=== PATIENT | female | born 1955 | race Caucasian/White ===

== ENCOUNTER 2017-12-11 16:15 | Emergency (ER) | payer MEDICARE ==
--- NOTE | 2017-12-11 19:26 | ER Document Report ---
ED Extremity Problem, Lower - General Chief Complaint: Leg Pain Stated Complaint: LEG PAIN Time Seen by Provider: 12/11/17 17:01 Mode of Arrival: Ambulatory Information source: Patient Notes: Patient presents with some left lower extremity pain. She states is mainly been behind the knee and into the left calf. It is worse with movement and better with rest. It is mild to moderate. And intermittent. She denies any known injury. She states she is worried about a DVT. No previous history of DVTs. She states she has noticed some mild swelling around her left ankle. The pain does radiate up and down the leg. TRAVEL OUTSIDE OF THE [place] IN LAST 30 DAYS: No - Related Data Allergies/Adverse Reactions: morphine Allergy (Verified 12/11/17 16:18) Past Medical History - General Information source: Patient - Social History Smoking Status: Never Smoker Frequency of alcohol use: Occasional Drug Abuse: None Family History: Reviewed & Not Pertinent Patient has suicidal ideation: No Patient has homicidal ideation: No Renal/ Medical History: Denies: Hx Peritoneal Dialysis Review of Systems - Review of Systems Constitutional: denies: Chills, Fever Cardiovascular: denies: Chest pain, Palpitations Respiratory: denies: Cough, Short of breath -: Yes All other systems reviewed and negative Physical Exam - Vital signs Vitals: Temp Pulse Resp BP Pulse Ox 97.8 F 78 16 127/101 H 97 12/11/17 16:20 12/11/17 16:20 12/11/17 16:20 12/11/17 16:20 12/11/17 16:20 Interpretation: Normal - General General appearance: Appears well, Alert - HEENT Head: Normocephalic, Atraumatic Eyes: Normal Pupils: PERRL - Respiratory Respiratory status: No respiratory distress Chest status: Nontender Breath sounds: Normal Chest palpation: Normal - Cardiovascular Rhythm: Regular Heart sounds: Normal auscultation Murmur: No - Abdominal Inspection: Normal Distension: No distension Bowel sounds: Normal Tenderness: Nontender Organomegaly: No organomegaly - Back Back: Normal, Nontender - Extremities General upper extremity: Normal inspection, Nontender, Normal color, Normal ROM , Normal temperature General lower extremity: Normal inspection, Nontender, Normal color, Normal ROM , Normal temperature, Normal weight bearing. No: Helen's sign - Neurological Neuro grossly intact: Yes Cognition: Normal Orientation: AAOx4 [place] Coma Scale Eye Opening: Spontaneous [place] Coma Scale Verbal: Oriented [place] Coma Scale Motor: Obeys Commands [place] Coma Scale Total: 15 Speech: Normal Motor strength normal: LUE, RUE, LLE, RLE Sensory: Normal - Psychological Associated symptoms: Normal affect, Normal mood - Skin Skin Temperature: Warm Skin Moisture: Dry Skin Color: Normal Course - Vital Signs Vital signs: Temp Pulse Resp BP Pulse Ox 97.8 F 78 16 127/101 H 97 12/11/17 16:20 12/11/17 16:20 12/11/17 16:20 12/11/17 16:20 12/11/17 16:20 - Diagnostic Test Radiology reviewed: Image reviewed, Reports reviewed - Ultrasound and reading were reviewed. No evidence of DVT. Discharge - Discharge Clinical Impression: Left leg pain Condition: Stable Disposition: HOME, SELF-CARE Additional Instructions: Please call your primary care physician in the morning to arrange follow-up.
--- NOTE | 2017-12-11 19:26 | XCELERA REPORT ---
[address] [address] Lower Extremity Venous Evaluation Name: SHI CLARK Age: 62 yrs Gender: Female : 1955 Patient Status: Emergency Patient Location: ER Study Date: 12/11/2017 06:41 PM Procedure: Color flow and duplex imaging of the veins of the left lower extremity as well as the right Common Femoral vein. Reason For Study: LLE swelling pain Ordering Physician: PERLA DELANEY Performed By: Anna Lai Right Sided Venous Evaluation The right common femoral vein is fully compressible. Spontaneous and phasic flow is present in the right common femoral vein. Left Sided Venous Evaluation Normal vessel filling wall to wall, compression and augmentation as well as Colour flow down to the infrageniculate veins. Interpretation Summary No duplex evidence of DVT or obstruction in the left lower extremity nor in the right Common Femoral vein. : PERLA DELANEY > Alessandro Umaña
[2017-12-11 19:40] VITALS: BP 125/83
== END 2017-12-11 19:36 | disposition home or self-care (01) ==
LOC: ER 16:15
DX: M79.605 Pain in left leg (principal); M79.89 Other specified soft tissue disorders
CPT/HCPCS: 93971; 99283